=== PATIENT | male | born 1995 | race Caucasian/White ===

== ENCOUNTER 2021-02-22 09:03 | Day surgery (SDC) | payer BC ==
[2021-02-22] VITALS (7 sets, daily range): BP systolic 113–148; BP diastolic 67–88
[~2021-02-22] VITALS: Ht 177.8 cm; Wt 90.0 kg
[~2021-02-22 09:03] MED LIST: ALBU18HF2 INH; BUPIVAcaine/PF 2.5mg/ml (0.25%) 10ml vial ONE; GABA-530 PO; HYDR-3964 PO; albuterol 2.5 MG/3 ML nebule NEB ONE; famotidine 20mg tablet PO ONE; ringers solution, lacted 1,000 ML IV SCH
[2021-02-22] MEDS ORDERED: cefazolin/dext.iso 2gm/100ml 100 ML IV ONE (09:30)
[2021-02-22] MEDS ORDERED: LIDOcaine 0.5% (5mg/ml) 50ml vial ONE (11:15)
[2021-02-22] MEDS ORDERED: LIDOcaine 1% (10mg/ml) 2ml vial ONE (11:21)
[2021-02-22] MEDS ORDERED: sevoflurane 250ml liquid IH ONE (12:11)
[2021-02-22] MEDS ORDERED: midazolam 1 mg/ML 2ml injection ONE (12:18)
[2021-02-22] MEDS ORDERED: fentaNYL/PF 50MCG/1 ML 2ML syringe ONE ×2 (12:18→12:35)
[2021-02-22] MEDS ORDERED: meperidine/PF 25mg/ml syringe IV PRN ×3 (12:55)
[2021-02-22] MEDS ORDERED: ondansetron/PF 4mg/2ml inj IV PRN (12:55)
[2021-02-22] MEDS ORDERED: morphine 4 MG/ML inj SYRINge IV PRN (12:55)
[2021-02-22] MEDS ORDERED: morphine 2 MG/ML inj. syringe IV PRN (12:55)
[2021-02-22] MEDS ORDERED: ringers solution, lacted 1,000 ML IV SCH (12:55)
[2021-02-22] MEDS ORDERED: proCHLORperazine 10 MG/2 ml inj IV PRN (12:55)
[2021-02-22] MEDS ORDERED: ondansetron/PF 4mg/2ml inj ONE (13:16)
[2021-02-22] MEDS ORDERED: LIDOcaine 1%/PF 5ML 10 MG/ML VIAL ONE (13:16)
[2021-02-22] MEDS ORDERED: propofol inj 20 ML IV ONE (13:16)
[2021-02-22] MEDS ORDERED: dexamethasone sod phosphate 4mg/ml inj. ONE (13:16)
--- NOTE | 2021-02-22 14:15 | NUR ---
AWAKE AND ORIENTED. VITALS STABLE. DRESSING DI. MARIXA PAIN. HOME WITH HIS AT THIS TIME.
== END 2021-02-22 14:15 | disposition home or self-care (01) ==
LOC: PAS 09:03
PROVIDERS: ATTEND Orthopaedic Surgery Hand Surgery
DX: S54.12XA Injury of median nerve at forearm level, left arm, initial encounter (principal); S56.222A Laceration of other flexor muscle, fascia and tendon at forearm level, left arm, initial encounter; J45.909 Unspecified asthma, uncomplicated; Z20.822 Contact with and (suspected) exposure to COVID-19; Z79.899 Other long term (current) drug therapy; Z98.890 Other specified postprocedural states; Z91.018 Allergy to other foods; W26.0XXA Contact with knife, initial encounter; Y93.89 Activity, other specified; Y92.89 Other specified places as the place of occurrence of the external cause; Y99.8 Other external cause status
CPT/HCPCS: 36415; 64721; 82948; 87426; A6222; J1100; J2001; J2250; J2405; J2704; J3010; J3490; A4215; A4618; A6449; J7120